=== PATIENT | male | born 1960 | race Caucasian/White ===

== ENCOUNTER → 2025-05-10 | Outpatient (CLI) | payer MEDICAID, SELFPAY ==
--- NOTE | 2025-05-10 08:44 | XR_ITS ---
Examination: Esophagram standard Fluoroscopy 23 spot fluoroscopic films of the esophagus Upright PA chest single view Upright soft tissue lateral neck single view Date and time: May 10, 2025 0906 hours INDICATIONS: Heartburn reflux 5 years getting worse TECHNIQUE AND FINDINGS: Upright PA chest single view demonstrates normal heart size, no pneumonia or pulmonary edema Soft tissue lateral neck demonstrates fusion C4-C5 and advanced disc narrowing C3-C4, C5-C6, C6-C7 with moderate cervical spondylosis 23 spot fluoroscopic films of the esophagus Fluoroscopy 0.17 minute Severe esophageal dysmotility Numerous secondary and tertiary esophageal contractions, esophageal spasm Moderate continuous gastroesophageal reflux Moderate sliding esophageal hernia No stricture at the gastroesophageal junction IMPRESSION: Severe esophageal dysmotility Moderate continuous gastroesophageal reflux
== END | disposition home or self-care (01) ==
LOC: CDIM 08:35
PROVIDERS: Referring Provider Nurse Practitioner Family; Visit Provider Nurse Practitioner Family
DX: K21.9 Gastro-esophageal reflux disease without esophagitis (principal); K22.89 Other specified disease of esophagus
CPT/HCPCS: 74220; A4649